=== PATIENT | male | born 2000 | race Caucasian/White ===

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

== ENCOUNTER 2022-12-15 20:00 | Emergency (ER) | payer SELFPAY | END 2022-12-15 20:12 | disposition left against medical advice (07) | LOC: DL.ED 20:00 | DX: Z53.21 Procedure and treatment not carried out due to patient leaving prior to being seen by health care provider (principal) ==

== ENCOUNTER 2023-02-24 14:26 | Emergency (ER) | payer SELFPAY ==
[2023-02-24 14:35] VITALS: BP 138/82; PULSE 92
[2023-02-24] MEDS ORDERED: Sodium Chloride 0.9% 10 ML Syringe FLUSH PRN (14:40)
[2023-02-24 14:56] LABS: BASOPHILS PERCENT AUTO 0.6 % (0.0-1.0); EOSINOPHILS PERCENT AUTO 2.5 % (1.0-3.0); HEMATOCRIT 42.2 % (40.0-54.0); HEMOGLOBIN 13.9 g/dL (14.0-18.0); MEAN CORPUSCULAR HEMOGLOBIN 29.3 pg (27.0-34.0); MEAN CORPUSCULAR HGB CONC 32.9 g/dL (33.0-35.0); MEAN CORPUSCULAR VOLUME 88.8 fL (80-100); MONOCYTES PERCENT AUTO 8.8 % (2-8); NEUTROPHILS PERCENT AUTO 57.1 % (42.2-75.2); PLATELET COUNT,PLT 183 10^3/uL (150-450); RED BLOOD CELL COUNT 4.75 10^6/uL (4.6-6.2); WHITE BLOOD CELL COUNT,WBC 4.8 10^3/uL (5.0-10.0)
[2023-02-24 15:16] LABS: A/G RATIO 1.1; ALANINE AMINOTRANSFERASE,ALT 20 U/L (16-63); ALBUMIN 3.8 g/dL (3.4-5.0); ALKALINE PHOSPHATASE 64 U/L (46-116); ANION GAP 11.2 mEq/L (7-13); ASPARTATE AMNIOTRANSFERASE,AST 15 U/L (15-37); BILIRUBIN TOTAL 0.6 mg/dL (0.2-1.0); BLOOD UREA NITROGEN,BUN 12 mg/dL (7-18); BUN/CREATININE RATIO 12.2 (No establ ref range); CALCIUM 8.9 mg/dL (8.5-10.1); CARBON DIOXIDE,CO2 30 mmol/L (21-32); CHLORIDE,CL 103 mmol/L (98-107); CREATININE 0.98 mg/dL (0.70-1.30); EST CRCL DRUG DOSING (CG) 135.88 mL/min; GLUCOSE RANDOM 91 mg/dL (70-99); LIPASE 20 U/L (16-77); POTASSIUM,K 4.2 mmol/L (3.5-5.1); PROTEIN TOTAL,TP 7.4 g/dL (6.4-8.2); SODIUM,NA 140 mmol/L (136-145)
[2023-02-24 15:19] LABS: LACTIC ACID 0.5 mmol/L (0.4-2.0)
[2023-02-24 15:20] LABS: C-REACTIVE PROTEIN < 0.50 ng/dL (<=0.50); ESTIMATED GFR 113 mL/min (>=60)
== END 2023-02-24 15:40 | disposition home or self-care (01) ==
LOC: DL.ED 14:26
DX: M62.830 Muscle spasm of back (principal); F17.210 Nicotine dependence, cigarettes, uncomplicated; Z88.1 Allergy status to other antibiotic agents; Z88.8 Allergy status to other drugs, medicaments and biological substances; Z79.899 Other long term (current) drug therapy
CPT/HCPCS: 36415; 80053; 83605; 83690; 85025; 86140; 99284; J3490

== ENCOUNTER 2024-09-01 01:24 | Emergency (ER) | payer SELFPAY ==
[2024-09-01] MEDS: Ketorolac 30 MG/ML SDV IM ONE (02:53)
[2024-09-01] MEDS: Cyclobenzaprine 10 MG Tab PO ONE (02:53)
[2024-09-01] MEDS ORDERED: Ketorolac 30 MG/ML SDV ONE (03:00)
[2024-09-01 04:19] VITALS: BP 128/68; PULSE 84
== END 2024-09-01 03:30 | disposition home or self-care (01) ==
LOC: DL.ED 01:24
DX: M79.12 Myalgia of auxiliary muscles, head and neck (principal); L55.1 Sunburn of second degree; Z88.0 Allergy status to penicillin; Z88.1 Allergy status to other antibiotic agents
CPT/HCPCS: 96372; 99283; A9270-GY; J1885